=== PATIENT | female | born 1955 | race Caucasian/White ===

== ENCOUNTER → 2019-11-16 13:48 | Outpatient (CLI) | payer MEDICARE, OTHER, SELFPAY ==
[2019-11-16 16:01] LABS: Absolute Lymphocyte Count 1.94 X10^3/uL (0.83-4.51); Basophil# 0.06 X10^3/uL; Basophil% 0.9 % (0-1); Eosinophil# 0.14 X10^3/uL; Eosinophils% 2.1 % (0-5); Hematocrit 47.6 % (37-47); Hemoglobin 15.1 g/dL (12.0-15.0); Lymphocyte # 1.94 X10^3/ul (4.0); Lymphocyte % 28.7 % (19-41); Mean Corp Hgb Conc 31.7 g/dL (32-36); Mean Corpuscular Hgb 30.6 pg (27.0-32.0); Mean Corpuscular Volume 96.4 fL (81-99); Mean Platelet Vol. 10.3 fl (6.2-12.0); Monocyte# 0.62 X10^3/uL; Monocyte% 9.2 % (0-10); NRBC Flagged by Analyzer 0 % (0-5); Platelet Count 235 K/mm3 (150-450); RBC Distribution Width CV 12.1 % (11.6-14.6); RBC Distribution Width SD 42.9 fl (35.1-43.9); Red Blood Count 4.94 M/mm3 (4.2-5.4); White Blood Count 6.8 K/mm3 (4.4-11.0)
[2019-11-16 16:33] LABS: ALB/GLOB Ratio 1.2 RATIO (0.9-2.4); AST(SGOT) 19 U/L (15-37); Alanine Aminotransfer ALT/SGPT 29 U/L (13-56); Albumin, Serum 4.4 g/dL (3.2-5.0); Alkaline Phosphatase 72 U/L (45-117); Anion Gap 7 (5-15); BUN 19 mg/dL (7-18); BUN/Creat Ratio 24.7 RATIO (10-20); CRP < 2.90 mg/L (0.0-3.0); Calcium,Total 9.6 mg/dL (8.5-10.1); Chloride 105 mmol/L (98-107); Creatinine, Serum 0.77 mg/dL (0.55-1.02); EST Glomerular Filtration Rate 80 mL/min (>60); Est Glom Filt Rate - Afr Amer 97 mL/min (>60); Globulin 3.7 g/dL (2.2-4.2); Glucose 82 mg/dL (74-106); Potassium 3.6 mmol/L (3.5-5.1); Protein, Total 8.1 g/dL (6.4-8.2); Sodium Level 140 mmol/L (136-145)
[2019-11-16 16:57] LABS: Erythrocyte Sedimentation Rate 5 mm/hr (0-30)
[2019-11-16 23:37] LABS: Hepatitis B Surface Antibody Non-Reactive; Hepatitis B Surface Antigen Non-Reactive (Nonreactive); Hepatitis C Antibody Non-Reactive (Nonreactive)
[2019-11-18 16:59] LABS: ANTINUCLEAR ANTIBODIES DIRECT Positive (Negative)
[2019-11-19 16:08] LABS: Red Blood Cell Count Test/G6PD 4.74 x10E6/uL (3.77-5.28)
[2019-11-19 16:29] LABS: CCP IgG Antibodies 168 units (0-19); G6PD Quant Test 268 (146-376); Hepatitis B Core AB IgM Negative (Negative)
== END ==
PROVIDERS: Referring Provider Internal Medicine Rheumatology; Visit Provider Internal Medicine Rheumatology
DX: M05.722 Rheumatoid arthritis with rheumatoid factor of left elbow without organ or systems involvement (principal); M19.041 Primary osteoarthritis, right hand; Q66.70 Congenital pes cavus, unspecified foot; Z79.899 Other long term (current) drug therapy
CPT/HCPCS: 36415; 80053; 82955; 85025; 85652; 86038; 86140; 86200; 86431; 86705; 86706; 86803; 87340

== ENCOUNTER → 2019-12-14 12:15 | Outpatient (CLI) | payer MEDICARE, OTHER, SELFPAY ==
[2019-12-14 13:34] LABS: EXAGEN MAILED SPECIMEN
[2019-12-14 16:41] LABS: Protein:Creat Ratio 201 mg/g CRE (0-200)
[2019-12-14 16:45] LABS: Uric Acid 4.9 mg/dL (2.6-6.0)
== END ==
PROVIDERS: Referring Provider Internal Medicine Rheumatology; Visit Provider Internal Medicine Rheumatology
DX: M06.09 Rheumatoid arthritis without rheumatoid factor, multiple sites (principal); M19.041 Primary osteoarthritis, right hand; M65.332 Trigger finger, left middle finger; R76.8 Other specified abnormal immunological findings in serum; Q66.70 Congenital pes cavus, unspecified foot; Z79.899 Other long term (current) drug therapy
CPT/HCPCS: 36415; 82570; 84156; 84550